=== PATIENT | female | born 1965 | race African-American/Black ===

== ENCOUNTER 2018-10-18 19:51 | Emergency (ER) | payer BC ==
[2018-10-18] MEDS ORDERED: Cyclobenzaprine 10 MG TAB ONE (21:13)
== END 2018-10-18 21:30 | disposition home or self-care (01) ==
LOC: ERS 19:51
DX: S39.012A Strain of muscle, fascia and tendon of lower back, initial encounter (principal); I10 Essential (primary) hypertension; X50.0XXA Overexertion from strenuous movement or load, initial encounter
CPT/HCPCS: 99283

== ENCOUNTER 2018-10-22 14:27 | Emergency (ER) | payer BC ==
[2018-10-22] MEDS ORDERED: Ketorolac Tromethamine 30 MG/ML VIAL ONE (16:14)
[2018-10-22] MEDS ORDERED: Acetaminophen 325 MG TAB ONE (16:14)
[2018-10-22 16:43] LABS: Bilirubin Negative (Negative); Blood, Urine Small (Negative); Clarity CLOUDY (Clear); Glucose, Urine (Dipstick) Negative (Negative); Leukocyte Negative (Negative); Nitrite Negative (Negative); Protein, Urine (Dipstick) Negative (Neg-Trace); Specific Gravity, Urine 1.019 (1.002-1.036); Urobilinogen 0.2 mg/dL (0.2-1.0)
[2018-10-22 16:49] LABS: Bacteria/HPF None Seen HPF (None Seen); Hyaline Casts/LPF 0-3 HYALINE CAST LPF (0-3 Hyaline); Pathc Cast-AUWi Flag 0.54 (0-2.49); Squamous Epithelial 0-3 HPF (0-3); WBC/HPF 0-3 HPF (0-3)
== END 2018-10-22 17:50 | disposition home or self-care (01) ==
LOC: ERS 14:27
DX: M54.5 Low back pain (principal); I10 Essential (primary) hypertension; Z79.82 Long term (current) use of aspirin; Z79.899 Other long term (current) drug therapy
CPT/HCPCS: 81003; 81015; 93005; 96372; J1885